=== PATIENT | male | born 1940 | race Caucasian/White ===

== ENCOUNTER → 2024-11-25 11:46 | Outpatient (REF) | payer OTHER, SELFPAY | LOC: RAD 11:46 | PROVIDERS: ATTENDING PHYSICIAN Internal Medicine Cardiovascular Disease | DX: I35.0 Nonrheumatic aortic (valve) stenosis (principal); I48.0 Paroxysmal atrial fibrillation | CPT/HCPCS: 75572; Q9967 ==

== ENCOUNTER 2025-01-14 05:58 | Inpatient (IN) | payer OTHER, SELFPAY ==
[2024-12-31 12:05] VITALS: BMI 37.9
[2024-12-31 13:38] LABS: INR 1.19; PT 15.6 Sec (11.4-14.6)
[2024-12-31 13:41] LABS: Hematocrit 42.7 % (39.0-52.0); Hemoglobin 13.8 g/dL (13.0-18.0); Mean Corp Hgb Conc. 32.3 g/dL (33.0-37.0); Mean Corpuscular Volume 86.4 fL (80.0-94.0); Nucleated Red Blood Cells % 0 % (-); Platelet Count 136 10^3/uL (130-400); Red Cell Dist. Width 14.1 % (11.5-14.5)
[2024-12-31 13:47] LABS: ALT (SGPT) 17 U/L (0-50); AST (SGOT) 22 U/L (17-59); Albumin 4.4 g/dl (3.5-5.0); Alkaline Phosphatase 46 U/L (38-126); Blood Urea Nitrogen 17 mg/dl (9-20); Calcium 9.9 mg/dl (8.4-10.2); Carbon Dioxide 30 mmol/L (22-30); Chloride 108 mmol/L (98-107); Estimated Creatinine Clearance 76 ml/min; Glucose 78 mg/dl (70-99); Potassium 4.4 mmol/L (3.5-5.1); Sodium 145 mmol/L (135-145); Total Protein 7.4 g/dl (6.3-8.2); eGFR > 60.00
[2025-01-14] VITALS (21 sets, daily range): BP systolic 91–118; BP diastolic 70–89; BMI 37.9
[2025-01-14 08:53] LABS: ACT-LR - POC 319 Seconds (116-155)
[2025-01-14 09:25] LABS: ACT-LR - POC 332 Seconds (116-155)
[2025-01-14 09:44] LABS: ACT-LR - POC 295 Seconds (116-155)
[2025-01-14 10:11] LABS: ACT-LR - POC 332 Seconds (116-155)
[2025-01-14 10:29] LABS: ACT-LR - POC 353 Seconds (116-155)
--- NOTE | 2025-01-14 10:45 | WATCHMAN.MD ---
Watchman Implant
-
ELECTROPHYSIOLOGY/INTERVENTIONAL PROCEDURE REPORT
Date of Procedure: January 14, 2025
Referring: Gene Bejarano
Assisting Physician: Kobi Smith MD
PROCEDURES:
1. Left atrial appendage occlusion device using 27 mm WATCHMAN FLX device
2. Intracardiac echocardiography
3. Ultrasound-guided right common femoral venous access
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
ACCESS: Right common femoral vein, 18Fr sheath and 10Fr. sheaths, under US guidance using micropunture kit.
Ultrasound was utilized for vascular access. The right femoral vein was visualized under ultrasound, and the vessels was patent. An image was stored permanently in the patient's medical record. Under direct ultrasound guidance, an 8 Jordanian
sheaths was inserted into the right common femoral vein, using a micropuncture kit through a modified Seldinger technique.
HEMODYNAMICS : (mmHg)
LA Pressure: 14
PROCEDURE REPORT:
After informed consent and patient safety 'Timeout' the patient was intubated and sedated by the anesthesiology service. Under ultrasound guidance, the right femoral vein was accessed by Dr. Nisreen Khalil twice for transseptal puncture and
intracardiac ultrasound, respectively. Concomitant transesophageal echocardiogram was performed by Dr. Owen Man
Baseline intracardiac ultrasound demonstrated no pericardial effusion and baseline JOY images revealed a trace pericardial effusion.
After ruling out a left atrial appendage thrombus, the patient was heparinized for an ACT between 350-400 seconds and under JOY and intracardiac ultrasound guidance transseptal puncture was performed by Dr. Nisreen Khalil using the [place] VersaCross
trans-septal system in a mid position on the inferior-superior axis and a mid position on the anterior-posterior axis. Left atrial pressure was 14 millimeters mercury.
Once transseptal puncture was performed over the [place] Versacross pigtail 0.035 wire, which was parked in the body of left atrial appendage, the watchman access double curve sheath was advanced over this into the left atrium. A 5 Jordanian pigtail
catheter was placed into the left atrial appendage and an appendage gram was performed using intravenous contrast dye demonstrating a chicken wing type anatomy that was suitable likely for a 27 mm WATCHMAN FLX device.
After appropriately prepping the device, Dr. Kobi Smith deployed a 27 mm WATCHMAN FLX device. Despite multiple recaptures and re-deployments, the device appeared canted with a significant mitral shoulder and therefore we decided to trial a
24 mm device at this point. Unfortunately the 24 mm device behaved very similarly. After multiple tries we decided to switch out the watchman access double curve sheath for a true steer Watchman sheath to allow for additional manipulation into the
anterior lobe. Despite using the true stair sheath we still could not successfully see the 27 mm device which continue to have a significant shoulder. At this time we decided to abort this access and obtain a second transseptal puncture a bit
inferiorly to allow for a more favorable delivery angle. Dr. Smith used an Agilis sheath to perform a second transseptal puncture any inferior position on the inferior superior axis and a mid position on the anterior posterior access and we
brought in the true steer Watchman sheath again and after multiple recaptures and redeployments, we finally successfully deployed a 27 mm device.
Device showed excellent positioning with no leaks post device deployment. 18 to 24% compression was noted in the device after deployment. A 'tug-test' was performed demonstrating stability of the device. Given PASS criteria were met, the device was
then released successfully by Dr. Kobi Smith.
Post procedure, JOY imaging demonstrated no new or worse pericardial effusion. Sheaths and catheters were removed from the left atrium and heparin was reversed using protamine. Catheters removed from the femoral veins with [id number] suture
applied. The patient tolerated the procedure well.
RADIATION SUMMARY: Fluoro Time (min): 54.4, Dose (mGy): 588.49, DAP (Gy.cm2) : 73.5
Closure Device: Figure of 8 suture
CONCLUSIONS
1. Challenging but successful deployment of 27 mm WATCHMAN FLX device under JOY and ICE guidance.
RECOMMENDATIONS
1. Plan for Eliquis twice daily for the next 3 months.
2. 3-month JOY post procedure to assess stability of device and rule out any dhruv-device leaks. If no issues noted on the 3-month JOY post watchman placement such as a greater than 5 mm leak, plan would be to stop anticoagulation at that point and
continue daily baby aspirin lifelong.
3. Figure of 8 suture removal prior to discharge.
Copy to: Gene Bejarano
Nisreen Khalil MD, FAC, [facility]
--- NOTE | 2025-01-14 12:37 | PTCARENOTE ---
Received pt post Watchman. VSS. Pt aao x3. Right groin site w/ FOE intact. Pt denies any discomfort. Post op orders reviewed w/ pt. Will monitor.
--- NOTE | 2025-01-14 14:29 | CM ---
CM following for DC planning needs.
Met w/ patient at bedside to complete initial assessment. Dtr. + spouse also present at this time.
Pt. resides in a private, 1 STH w/ dtr. + spouse in a private, 1 STH + basement. Pt. is functionally indep. w/ ADLs, mobility with the use of SPC.
Family requesting VN at time of DC. Will initiate referral.
Goal is for home w/ VN.
Will cont. to follow.
[2025-01-14] MEDS: LASIX 20 MG PO (15:41)
--- NOTE | 2025-01-14 16:28 | WATCHMAN.MD ---
Watchman Implant
-
WATCHMAN LEFT ATRIAL APPENDAGE CLOSURE DEVICE REPORT
Date: January 14, 2025
Referring Automotive Upholsterer: Grayson Andrew DO
Primary Care Provider: Dr Gene Bejarano
Watchman Team:
JOY: Dr. Mark Man
Transseptal popcorn machine operator: Dr Nisreen Khalil[ ]Shila
Implanter: Dr Nancy Smith M.D.
Procedure: Watchman left atrial appendage closure.
The patient was placed under general anesthesia by anesthesia.
A JOY probe was placed.
Ultrasound Guidance with real-time visualization of needle insertion and vessel patency performed by ca for femoral venous Vascular Access.
Under real-time US guidance, the needle was advanced with negative pressure into the vein. The needle was seen entering the vessel lumen with a good return of dark red flow, the syringe was removed, non-pulsatile, dark red blood low was noted and
the wire was passed without difficulty, then the needle was removed. US confirmed the wire was in the vein, not going into an artery,
Images were taken and saved for the patient's permanent record. Imaging findings typical femoral venous anatomy. Direct visualization of needle puncture into the femoral vein was observed and recorded.
A 10 Fr sheath was placed in the right femoral vein for ICE.
18 Fr sheath was placed via the right femoral vein to allow access for the watchman sheath
Heparin was administered to goal ACT 350-400 seconds. Fluid bolus was given.
Intracardiac ultrasound catheter was placed in the right atrium identifying the intraatrial septum for transseptal puncture.
Transseptal puncture was performed By Dr Khaill. This entailed advancing a sheath with dilator into the superior vena cava and withdrawing both (monitoring intracardiac ultrasound, fluoroscopy and tip pressure) with the tip oriented toward the
atrial septum. The fossa ovalis was engaged (indicated by sudden displacement of the sheath tip as well as tenting of the fossa seen on intracardiac ultrasound). Cympel transseptal system was used. Left atrial catheter position was confirmed by
echocardiographic imaging, pressure monitoring and fluoroscopy. The sheath was advanced over the dilator and positioned in the left atrium.
Dr Smith positioned and deployed the Watchman device.
The double curve sheath was used A 5 Spanish curved pigtail was then substituted for the guidewire through the watchman sheath to the ostium of the left atrial appendage. The 5 Spanish pigtail was advanced into the left atrial appendage and
angiography was performed. This allowed additional measurements assessing left atrial appendage ostium size and JENNIE morphology.
The pigtail catheter was removed from the access sheath. A 27mm Watchman device was flushed and then placed into the watchman access sheath and advanced through the sheath. The Watchman was clamped into the sheath. The device was deployed into
the left atrial appendage. Several attempts at deployment did not provide adequate seating. We attempted to engage in anterior lobe but the device kept sliding posteriorly with deployment, related to left atrial appendage morphology. A 24 mm
device was attempted but with similar results. Therefore it was decided to redo transseptal puncture to more inferior and anterior location which may provide a better trajectory to the anterior lobe of the left atrial appendage. Initial
transseptal puncture was difficult. It was difficult to position the dilator and sheath to the desired location. Therefore it was decided to use an Agilis sheath and [place] needle. This would provide more the flexibility of the sheath to
approach the targeted site. With this a more anterior and inferior location was targeted and successfully crossed for transseptal puncture. Additionally rather than the double curve sheath, the deflectable Watchman sheath was substituted. This
also allowed for better manipulation of the device to the anterior lobe. Using a 27 mm device the anterior lobe could be more easily approached but each time deployment would again push the device posteriorly despite several attempts. It was then
decided to choose a more proximal location on the left atrial appendage to avoid the distal ridge which was forcing the device posteriorly. At this location deployment was successful using a 27 mm device.
The PASS criteria were met. The stability tug test was performed and passed. Echocardiogram revealed no leaks nor jets.There were no significant shoulders. Compression ranges from 18% to 26 %.
After meeting the PASS release criteria the device was released into the left atrial appendage.
The watchman access sheath was then removed through the transseptal into the IVC. A figure 8 suture closure was performed at the site of the femoral venous puncture and the sheath as it was removed.
Impression:
- Transseptal puncture by Dr Khalil.
- Successful Deployment 27 mm WATCHMAN left atrial appendage closure device by Dr Smith.
- Ultrasound guidance for vascular access
Recommended anticoagulation strategy for this specific patient is to increase Eliquis from 2.5 mg twice daily to 5 mg twice daily.
We will check transesophageal echo in 3 months.
If at the 3-month transesophageal echocardiogram there is no significant leaks and a device is felt to be well-seated. Oral anticoagulation can be discontinued in favor of aspirin 81 mg daily.
At post procedure JOY leaks > 5mm are significant and require chronic full anticoagulation or consideration for leak closure. Inna-device leaks between 3 and 5 mm may also carry an increased risk. These patients will need individualized risk
assessment and discussion with Watchman team. Leaks < 3 mm are generally considered non-significant. With leak of any size suggestion is to check JOY 12 mo out from implant.
We recommend SBE prophylaxis with amoxicillin for the first 6 months after device implantation until the device is more completely endothelialized. After the first 6 months, the risk of infection associated with a device is significantly reduced
in routine antibiotic prophylaxis is not mandatory but can be decided on an individual case basis.
Continue cardiovascular care with Dr Gene Bejarano.
cc:
Dr Gene Bejarano
Dr. Grayson Andrew
[2025-01-14] MEDS: ELIQUIS 5 MG PO (20:45)
[2025-01-14] MEDS: COREG PO (21:08)
[2025-01-14] MEDS: LIPITOR 20 MG PO (22:52)
[2025-01-14] MEDS: FLOMAX 0.4 MG PO (22:52)
[2025-01-15 03:15] VITALS: BP 97/74
[2025-01-15 04:51] LABS: Hematocrit 38.1 % (39.0-52.0); Hemoglobin 12.6 g/dL (13.0-18.0); Mean Corp Hgb Conc. 33.1 g/dL (33.0-37.0); Mean Corpuscular Volume 85.0 fL (80.0-94.0); Platelet Count 142 10^3/uL (130-400); Red Cell Dist. Width 13.5 % (11.5-14.5)
[2025-01-15 04:58] LABS: Blood Urea Nitrogen 29 mg/dl (9-20); Calcium 9.2 mg/dl (8.4-10.2); Carbon Dioxide 24 mmol/L (22-30); Chloride 107 mmol/L (98-107); Estimated Creatinine Clearance 67 ml/min; Glucose 99 mg/dl (70-99); Magnesium 2.3 mg/dl (1.6-2.3); Potassium 4.6 mmol/L (3.5-5.1); Sodium 140 mmol/L (135-145); eGFR > 60.00
[2025-01-15 07:09] VITALS: BP 105/73
[2025-01-15] MEDS: LASIX 20 MG PO (08:55)
[2025-01-15] MEDS: COREG 3.125 MG PO (08:55)
[2025-01-15] MEDS: ELIQUIS 5 MG PO (08:55)
[2025-01-15] MEDS: COLACE 100 MG PO (08:55)
--- NOTE | 2025-01-15 09:19 | W.PN.CARDCBS ---
Addendum entered and electronically signed by Kobi Smith MD 01/15/25 14:14:
Patient seen, interviewed and examined by me.
Well-appearing, no acute distress
Irregular rate and rhythm with normal S1 and S2, no S3 no S4. There is a grade 1/6 apical holosystolic murmur and no rubs. PMI is normally placed.
Lungs are clear to auscultation bilaterally without wheezes rales or rhonchi.
Abdomen soft nontender nondistended with normoactive bowel sounds
Extremities show trace pretibial edema bilaterally no clubbing or cyanosis.
Right groin with no hematoma or bruit. No bleeding. There is +2 distal pulses as well as +2 femoral pulses bilaterally.
Neurologic exam is grossly nonfocal.
He underwent successful deployment of left atrial appendage occlusion device with Watchman.
No immediate periprocedural complications noted.
He is present with his daughter in the room and we reviewed discharge instructions including my recommendation that he increase his Eliquis to 5 mg twice daily which would be the appropriate dosing for him given his renal function. They understand
and they agree.
Will plan to assess stability and adequacy of watchman with transesophageal echocardiogram in 3 months.
If there is adequate seating of the device with no significant leaks and no device related thrombus we will plan to stop Eliquis at that time and initiate aspirin 81 mg daily.
-At post procedure JOY leaks > 5mm are significant and require chronic full anticoagulation or consideration for leak closure. Inna-device leaks between 3 and 5 mm may also carry an increased risk. These patients will need individualized risk
assessment and discussion with Watchman team. Leaks < 3 mm are generally considered non-significant. With leak of any size suggestion is to check JOY 12 mo out from implant.
Additionally, we recommend SBE prophylaxis with amoxicillin for the first 6 months after device implantation until the device is more completely endothelialized. After the first 6 months, the risk of infection associated with a device is
significantly reduced in routine antibiotic prophylaxis is not mandatory but can be decided on an individual case basis.
Continue cardiovascular care with Dr. Bejarano
Original Note:
Today's Communication / Plan
-
post watchman stable for d/c home
increase eliquis to 5mg bid
Impression / Plan
-
Referring Assembly Operator: Grayson Andrew,
Primary Care Provider: Dr Gene Bejarano
Impression:
Persistent Atrial fibrillation
Ambulatory dysfunction with frequent falls
post 27mm Watchman device implant 01/14/25
HTN
HLD
Mild-mod
JÚNIOR/CPAP
BPH
DDD/spinal stenosis
osteoarthritis
Plan:
post Watchman feels good
groin stable
tele Afib
OAC Eliquis 5mg bid - increased as Cr stable
f/u JOY 3 mo
Activity restrictions reviewed
f/u Dr. Bejarano in 2 mo
home today
Progress Note - Assembly Operator
Subjective
Date of Service: January 15, 2025
denies cp, sob
Objective
Labs:
01/15/25 03:48
01/15/25 03:48
Labs
Hgb 12.6 g/dL (13.0-18.0) L 01/15/25 03:48
Hct 38.1 % (39.0-52.0) L 01/15/25 03:48
Plt Count 142 10^3/uL (130-400) 01/15/25 03:48
PT 15.6 Sec (11.4-14.6) H 12/31/24 12:16
INR 1.19 12/31/24 12:16
Sodium 140 mmol/L (135-145) 01/15/25 03:48
Potassium 4.6 mmol/L (3.5-5.1) 01/15/25 03:48
BUN 29 mg/dl (9-20) H 01/15/25 03:48
Creatinine 0.9 mg/dL (0.7-1.3) 01/15/25 03:48
Glucose 99 mg/dl (70-99) 01/15/25 03:48
Vital Signs and I&O:
Vital Signs
Temp Pulse Resp BP Pulse Ox
98.3 F 71 20 100/70 95
01/15/25 07:08 01/15/25 00:00 01/15/25 07:08 01/14/25 22:25 01/15/25 07:08
Vital Signs
Temp Pulse Resp BP Pulse Ox
98.3 F 71 20 100/70 95
01/15/25 07:08 01/15/25 00:00 01/15/25 07:08 01/14/25 22:25 01/15/25 07:08
Intake & Output
01/13/25 01/14/25 01/15/25 01/16/25
06:59 06:59 06:59 06:59
Intake Total 480 / 480
Balance 480 / 480
Physical Exam
Physical Exam
NAD, AOX3
S1, S2, irreg irreg, 2/6 BENSON
CTAB, non labored, no wheeze
SNTND bsx4
R fem site c/d/i no HT, soft
--- NOTE | 2025-01-15 10:01 | PTCARENOTE ---
Pt received this am oob in the chair. Denies any pain or sob. Right groin site WNL. Room air sat 98%. Pt discharged to home with his daughter. Discharge instructions given and reviewed with good understanding and all questions answered.
--- NOTE | 2025-01-15 12:11 | CM ---
CM following for DC planning needs.
Pt. for DC today to home. Referral sent to [facility] per family request; accepted.
Plan- Home w/ [facility]
--- NOTE | 2025-01-15 12:44 | W.DS.TRANS ---
DC Summary - [employer]
-
Discharge Instructions:
Discharge Diagnosis/Procedures Atrial fibrillation post Watchman implant
Diet Low Cholesterol
Driving Restrictions No driving for 24 hours
Others Tests YOUR JOY IS SCHEDULED FOR 04/23/2025. YOU WILL
RECEIVE A PHONE CALL WITH INSTRUCTIONS CLOSER TO
THAT DATE. YOUR PREADMISSION TESTING IS
SCHEDULED FOR 04/14/2025 @ 11:20 AT [facility]
Instructions:
Stand-Alone Forms: DC Instructions- Cath/EP Lab
Changes to Home Medications: Yes
Discharge Medications:
DC Medications w/original date entered in [employer]
carvedilol 3.125 mg tablet 3.125 mg PO BID Blood Pressure 12/29/24
docusate sodium 100 mg capsule (Colace) 100 mg PO DAILY Gastrointestinal Issue 12/29/24
furosemide 20 mg tablet 20 mg PO BID Fluid Retention/Swelling 12/29/24
losartan 50 mg tablet 50 mg PO DAILY Blood Pressure 12/29/24
psyllium 1 packet PO DAILY Gastrointestinal Issue 12/29/24
simvastatin 40 mg tablet 40 mg PO HS High Cholesterol 12/29/24
tamsulosin 0.4 mg capsule 0.4 mg PO HS Urinary Issue 01/14/25
apixaban 5 mg tablet (Eliquis) 5 mg PO BID #60 tabs 01/15/25
Home Medication Changes
increased eliquis to 5mg bid
Pending Results: No
== END 2025-01-15 10:50 | disposition home health service (06) | DRG 274 ==
LOC: IVU 05:58
PROVIDERS: Internal Medicine Cardiovascular Disease; Nurse Practitioner Adult Health; ADMITTING PHYSICIAN Internal Medicine Cardiovascular Disease; FAMILY PHYSICIAN Family Medicine; REFERRING PHYSICIAN Internal Medicine Interventional Cardiology
PROC: 02L73DK Occlusion of Left Atrial Appendage with Intraluminal Device, Percutaneous Approach (ICD-10-PCS; 2025-01-14)
PROC: B24BZZ4 Ultrasonography of Heart with Aorta, Transesophageal (ICD-10-PCS; 2025-01-14)
DX: I48.19 Other persistent atrial fibrillation (principal); E78.5 Hyperlipidemia, unspecified; I10 Essential (primary) hypertension; E66.9 Obesity, unspecified; I08.0 Rheumatic disorders of both mitral and aortic valves; I44.0 Atrioventricular block, first degree; M19.90 Unspecified osteoarthritis, unspecified site; G62.9 Polyneuropathy, unspecified; M48.00 Spinal stenosis, site unspecified; R29.6 Repeated falls; G47.33 Obstructive sleep apnea (adult) (pediatric); N40.1 Benign prostatic hyperplasia with lower urinary tract symptoms; R33.8 Other retention of urine; Z91.81 History of falling; Z68.37 Body mass index [BMI] 37.0-37.9, adult; Z79.01 Long term (current) use of anticoagulants
CPT/HCPCS: 33340; 36415; 80048; 80053; 83735; 85025; 85027; 85347; 85610; 86850; 86900; 86901; 87070; 93005; 93355; 93662; C1753; C1766; C1769; C1892; Q9967